=== PATIENT | male | born 1940 | race African-American/Black ===

== ENCOUNTER 2019-04-14 05:34 | Inpatient (IN) ==
[2019-04-14] MEDS ORDERED: VANCOMYCIN INJ 1,000 MG in SODIUM CHLORIDE 0.9% 250 ML IV ONE (06:00)
[2019-04-14] MEDS ORDERED: ceFAZolin 1,000 MG in SYRINGE 1 EACH IV ONE (06:00)
[2019-04-14] MEDS ORDERED: ceFAZolin 1,000 MG VIAL ONE (06:06)
[2019-04-14] MEDS ORDERED: VANCOMYCIN 1,000 MG VIAL ONE (06:06)
[2019-04-14] MEDS ORDERED: LIDOCAINE 2% 5 ML VIAL ONE ×2 (06:24→08:56)
[2019-04-14] MEDS ORDERED: DEXAMETHASONE 4 MG/1 ML VIAL ONE (06:25)
[2019-04-14] MEDS ORDERED: BUPIVACAINE SPINAL 0.75% 2 ML AMP SPINAL ONE (06:25)
[2019-04-14] MEDS ORDERED: EPINEPHrine 1 MG/ML VIAL ONE (06:25)
[2019-04-14] MEDS ORDERED: BUPIVACAINE 0.5% 50 ML VIAL ONE (06:25)
[2019-04-14] MEDS ORDERED: LACTATED RINGERS 1,000 ML IV SCH (06:30)
[2019-04-14] MEDS ORDERED: GABAPENTIN 400 MG CAPSULE PO ONE (06:38)
[2019-04-14] MEDS ORDERED: PANTOPRAZOLE 40 MG TABLET PO ONE (06:38)
[2019-04-14] MEDS ORDERED: ACETAMINOPHEN 500 MG TABLET PO ONE (06:38)
[2019-04-14] MEDS ORDERED: diphenhydrAMINE CAP 25 MG CAPSULE PO PRN (07:12)
[2019-04-14] MEDS ORDERED: LACTULOSE 20 GM/30 ML UDCUP PO PRN (07:12)
[2019-04-14] MEDS ORDERED: MAGNESIUM HYDROXIDE SUSP 30 ML UDCUP PO PRN (07:12)
[2019-04-14] MEDS ORDERED: TEMAZEPAM 7.5 MG CAPSULE PO PRN (07:12)
[2019-04-14] MEDS ORDERED: MORPHINE 4 MG/1 ML VIAL IV PRN (07:12)
[2019-04-14] MEDS ORDERED: ONDANSETRON 4 MG/2 ML VIAL IV PRN (07:12)
[2019-04-14] MEDS ORDERED: BISACODYL 10 MG SUPP RECTAL PRN (07:12)
[2019-04-14] MEDS ORDERED: PROMETHAZINE 25 MG/1 ML VIAL IM PRN (07:12)
[2019-04-14] MEDS ORDERED: SILDENAFIL 100 MG PO PRN (07:16)
[2019-04-14] MEDS ORDERED: GLUCAGON 1 MG VIAL IM PRN (07:16)
[2019-04-14] MEDS ORDERED: DEXTROSE 10% 25 GM/250 ML BAG IV PRN (07:16)
[2019-04-14] MEDS ORDERED: TRANEXAMIC ACID 1,000 MG/10 ML VIAL ONE (07:39)
[2019-04-14] MEDS ORDERED: ROPIVACAINE 0.5% 30 ML VIAL ONE (08:56)
[2019-04-14] MEDS ORDERED: PROPOFOL 200 MG/20 ML VIAL IV ONE (08:56)
[2019-04-14] MEDS ORDERED: KETAMINE 500 MG/10 ML VIAL ONE (08:57)
[2019-04-14] MEDS ORDERED: SODIUM CHLORIDE 0.9% 200 ML IV ONE (08:57)
[2019-04-14] MEDS ORDERED: MIDAZOLAM 2 MG/2 ML VIAL ONE (08:57)
[2019-04-14] MEDS ORDERED: LACTATED RINGERS 1,000 ML IV ONE (08:57)
[2019-04-14] MEDS ORDERED: fentaNYL 100 MCG/2 ML VIAL ONE (08:57)
[2019-04-14] MEDS: INSULIN REGULAR 100 UNIT/ML SUBCUT SCH ×4 (10:23→23:00)
[2019-04-14] MEDS: DOCUSATE SODIUM 100 MG CAPSULE PO SCH ×2 (10:38→22:05)
[2019-04-14] MEDS: LOSARTAN 25 MG TABLET PO SCH (10:39)
[2019-04-14] MEDS: metFORMIN 500 MG TABLET PO SCH ×2 (10:39→22:05)
[2019-04-14] MEDS: hydroCHLOROthiazide 12.5 MG CAPSULE PO SCH (10:39)
[2019-04-14] MEDS: SIMVASTATIN 20 MG TABLET PO SCH (10:44)
[2019-04-14] MEDS: glyBURIDE 5 MG TABLET PO SCH ×2 (10:44→22:05)
[2019-04-14] MEDS: TERAZOSIN 2 MG CAPSULE PO SCH (11:49)
[2019-04-14] MEDS: ceFAZolin 2,000 MG in PREMIX 1 EACH IV SCH ×2 (15:12→22:06)
[2019-04-14] MEDS: FONDAPARINUX 2.5 MG/0.5 ML SYRINGE SUBCUT SCH (17:15)
[2019-04-15 06:17] LABS: Basophils % 0.1 % (0.0-0.8); Eosinophils % 0.4 % (0.00-10.9); Hematocrit 26.7 VOL% (42.0-52.0); Hemoglobin 8.6 GM/DL (14.0-18.0); Immature Granulocytes % 0.4 %; Immature Granulocytes Absolute 0.03 #; Lymphocytes # 2.3 10*3/uL (1.4-4.0); Lymphocytes % 31.9 % (21.2-54.2); Mean Corpuscular HGB Conc 32.2 GM/DL (32-36); Mean Corpuscular Volume 91.8 FL (87-102); Mean Platelet Volume 9.9 FL (9.6-12.0); Monocytes % 9.1 % (1.7-12.7); Neutrophils % 58.1 % (38.7-73.9); Platelet Count 229 T/CUMM (130-400); Red Blood Count 2.91 MC/CUMM (3.8-5.5); Red Cell Distribution Width 13.2 % (9.3-17.3); White Blood Count 7.3 T/CUMM (4-12)
[2019-04-15 06:37] LABS: Calcium 8.1 MG/DL (8.5-10.1); Osmolality,Calculated 274.5 MOS/KG (273-304)
[2019-04-15] MEDS: INSULIN REGULAR 100 UNIT/ML SUBCUT SCH ×4 (07:59→21:24)
[2019-04-15] MEDS: metFORMIN 500 MG TABLET PO SCH ×2 (08:59→21:24)
[2019-04-15] MEDS: DOCUSATE SODIUM 100 MG CAPSULE PO SCH ×2 (09:00→20:56)
[2019-04-15] MEDS: glyBURIDE 5 MG TABLET PO SCH ×2 (09:01→21:24)
[2019-04-15] MEDS: SIMVASTATIN 20 MG TABLET PO SCH (09:01)
[2019-04-15] MEDS: hydroCHLOROthiazide 12.5 MG CAPSULE PO SCH (09:01)
[2019-04-15] MEDS: LOSARTAN 25 MG TABLET PO SCH (09:01)
[2019-04-15] MEDS: TERAZOSIN 2 MG CAPSULE PO SCH (09:07)
[2019-04-15] MEDS: FONDAPARINUX 2.5 MG/0.5 ML SYRINGE SUBCUT SCH (18:30)
[2019-04-16 06:18] LABS: Basophils % 0.1 % (0.0-0.8); Eosinophils % 0.6 % (0.00-10.9); Hematocrit 24.1 VOL% (42.0-52.0); Immature Granulocytes % 0.4 %; Immature Granulocytes Absolute 0.03 #; Lymphocytes # 2.1 10*3/uL (1.4-4.0); Lymphocytes % 30.4 % (21.2-54.2); Mean Corpuscular HGB Conc 33.2 GM/DL (32-36); Mean Corpuscular Volume 90.6 FL (87-102); Mean Platelet Volume 10.1 FL (9.6-12.0); Monocytes % 8.8 % (1.7-12.7); Neutrophils % 59.7 % (38.7-73.9); Platelet Count 213 T/CUMM (130-400); Red Blood Count 2.66 MC/CUMM (3.8-5.5); Red Cell Distribution Width 13.2 % (9.3-17.3)
[2019-04-16] MEDS: INSULIN REGULAR 100 UNIT/ML SUBCUT SCH ×2 (08:06→11:45)
[2019-04-16] MEDS ORDERED: MULTIVITAMIN (INTRINSIC) CAPSULE PO SCH (09:00)
[2019-04-16] MEDS: TERAZOSIN 2 MG CAPSULE PO SCH (09:26)
[2019-04-16] MEDS: metFORMIN 500 MG TABLET PO SCH (09:26)
[2019-04-16] MEDS: glyBURIDE 5 MG TABLET PO SCH (09:26)
[2019-04-16] MEDS: SIMVASTATIN 20 MG TABLET PO SCH (09:26)
[2019-04-16] MEDS: hydroCHLOROthiazide 12.5 MG CAPSULE PO SCH (09:27)
[2019-04-16] MEDS: DOCUSATE SODIUM 100 MG CAPSULE PO SCH (09:27)
[2019-04-16] MEDS: LOSARTAN 25 MG TABLET PO SCH (09:27)
[2019-04-16 12:15] VITALS: BP 118/73
== END 2019-04-16 14:33 | DRG 470 ==
LOC: N.PREADM 05:34 → N.SDSINP 05:35 → N.3E 09:30
PROVIDERS: ADMIT Orthopaedic Surgery; ATTEND Orthopaedic Surgery